=== PATIENT | male | born 1950 | race Caucasian/White ===

== ENCOUNTER 2017-03-02 15:45 | Inpatient (IN) | payer MEDICARE ==
[~2017-03-02] VITALS: Ht 188 cm; Wt 94.8 kg
--- NOTE | 2017-03-02 15:50 | NUR ---
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 PT CAME IN ALOC, EVENTUALLY REGAINED CONSCIOUSNESS. GENERALIZED WEAKNESS NOTED. MD AT BS FOR EVAL. PT ABLE TO RESPOND VERBALLY AND FOLLOW COMMANDS. VSS. DENIES HEAD AND ENCK PAIN/ TRAUMA. SAFETY AND COMFORT MEASURES PROVIDED. WILL MONITOR.
[2017-03-02 16:00] LABS: BASOPHILS # (AUTO) 0.1 /CMM (0.0-0.2); BASOPHILS % (AUTO) 0.6 % (0.0-2.0); EOSINOPHILS # (AUTO) 0.2 /CMM (0.0-0.7); EOSINOPHILS % (AUTO) 2.4 % (0.0-6.0); HEMATOCRIT 48 % (39-51); HEMOGLOBIN 16.6 g/dL (13.5-17.5); LYMPHOCYTES # (AUTO) 2.1 /CMM (0.8-4.8); LYMPHOCYTES % (AUTO) 21.9 % (20.0-44.0); MEAN CORPUSCULAR HEMOGLOBIN 30 PG (26.0-33.0); MEAN CORPUSCULAR HGB CONC 34 g/dl (31.0-36.0); MEAN CORPUSCULAR VOLUME 87 fL (80-96); MONOCYTES # (AUTO) 0.7 /CMM (0.1-1.30); MONOCYTES % (AUTO) 7.5 % (2.0-12.0); NEUTROPHILS # (AUTO) 6.3 /CMM (1.8-8.9); NEUTROPHILS % (AUTO) 67.6 % (43.0-81.0); PLATELET COUNT (AUTO) 227 /CMM (150-450); RDW COEFFICIENT OF VARIATION 12.8 (11.5-15.0); RED BLOOD CELL COUNT(AUTO) 5.57 MIL/uL (4.5-6.0); WHITE BLOOD COUNT (AUTO) 9.4 K/uL (4.3-11.0)
[2017-03-02] MEDS ORDERED: IV NS 0.9% 1,000 ML BAG IV ONE (16:00)
[2017-03-02 16:16] LABS: CALCIUM, SERUM 10.1 mg/dL (8.5-10.1); CARBON DIOXIDE 27 mmol/L (21-32); CHLORIDE 105 mmol/L (98-107); CREATININE 1.2 mg/dL (0.6-1.3); GLUCOSE 102 mg/dL (74-106); POTASSIUM 4.2 mmol/L (3.5-5.1); SODIUM SERUM 140 mmol/L (136-145); UREA NITROGEN, BLOOD 13 mg/dL (7-18)
[2017-03-02 16:19] LABS: INR 0.95 (0.87-1.13); PROTHROMBIN TIME 9.9 SECS (9.5-12.7)
[2017-03-02 16:22] LABS: ALANINE AMINOTRANSFERASE 23 U/L (12-78); ALBUMIN 4.1 g/dL (3.4-5.0); ALKALINE PHOSPHATASE 80 U/L (46-116); ASPARTATE AMINOTRANSFERASE 18 U/L (15-37); BILIRUBIN,DIRECT 0.1 mg/dL (0.0-0.2); BILIRUBIN,TOTAL 0.4 mg/dL (0.2-1.0); TOTAL PROTEIN, SERUM 7.4 g/dL (6.4-8.2)
[2017-03-02 16:24] LABS: TROPONIN I < 0.017 ng/mL (0.00-0.056)
[2017-03-02] MEDS ORDERED: IV 1/2NS 1000 ML 1,000 ML IV PRN ×2 (16:51→17:00)
--- NOTE | 2017-03-02 16:53 | NUR ---
REPORT GIVEN TO TIMO ORTIZ FOR GIULIA
[2017-03-02 17:00] VITALS: BP 148/94
[2017-03-02] MEDS ORDERED: MAGNESIUM HYDROXIDE 30 ML UDC PO PRN ×2 (17:00→17:15)
[2017-03-02] MEDS ORDERED: HYDROCODONE/APAP 5/325MG 1 EACH TABLET PO PRN ×2 (17:00→17:15)
[2017-03-02] MEDS ORDERED: MAG HYDROX/AL HYDROX/SIMETH 30 ML UDC PO PRN ×2 (17:00→17:15)
[2017-03-02] MEDS ORDERED: ACETAMINOPHEN 325 MG TABLET PO PRN ×2 (17:00→17:15)
[2017-03-02] MEDS ORDERED: ONDANSETRON HCL/PF 4 MG/2 ML VIAL IVP PRN ×2 (17:00→17:15)
[2017-03-02] MEDS ORDERED: ZOLPIDEM TARTRATE 5 MG TABLET PO PRN (17:00)
[2017-03-02] MEDS ORDERED: Z GUARD REMEDY 2 OZ OINT TP PRN ×2 (17:00→17:15)
--- NOTE | 2017-03-02 17:04 | NUR ---
PT TRANSFERRED TO TELEMETRY UNIT IN STABLE CONDITION
[2017-03-02] MEDS ORDERED: CITA10TA9 PO (17:34)
[2017-03-02] MEDS ORDERED: LISI-607 PO (17:34)
[2017-03-02] MEDS ORDERED: BUSP5TAB3 PO (17:35)
--- NOTE | 2017-03-02 17:36 | NUR ---
History of taking meds, lisinopril, buspirone, and citalopram. Has not taken any recently. Family history of heart attack. Dad at 72 yeas of age. Mom at 70 years of age of "natural causes, was messed up in the head" per patient. Request something for relaxing and sleep.
[2017-03-02 17:47] VITALS: BP 148/94
--- NOTE | 2017-03-02 19:25 | NUR ---
RN NOTES PT AWAKE, HOB ELEVATED, NO SOB, NOT IN DISTRESS, ON ROOM AIR AND TOLERATED WELL. PT ALERT AND ORIENTED X3, DENIES ANY PAIN AND DISCOMFORT. TELEMONITOR READS SINUS RHYTHM AT 68. IV ACCESS ON LEFT HAND PATENT AND INTACT. PT AMBULATORY WITH STEADY GAIT. KEPT COMFORTABLE AND ATTENDED. WILL CONTINUE TO MONITOR PT.
[2017-03-02 20:00] VITALS: BP_SYST 102; BP_SYST 123; BP_SYST 124; BP_DIAS 67; BP_DIAS 80; BP_DIAS 82; BP_DIAS 83
[2017-03-02] MEDS: ZOLPIDEM TARTRATE 5 MG TABLET PO PRN (21:30)
--- NOTE | 2017-03-02 21:30 | NUR ---
RN NOTES PT VERBALIZING DIFFICULTY IN SLEEPING, AMBIEN 5 MG TAB GIVEN PO. WILL CONTINUE TO MONITOR PT.
[2017-03-02 22:00] VITALS: BP 123/83
[2017-03-03] MEDS ORDERED: IV SET PRIMARY PUMP SET 1 EA INFUS.SET MC ONE ×2 (05:04→08:49)
--- NOTE | 2017-03-03 07:10 | NUR ---
HOSTING ENGINEER NOTES RECEIVED PATIENT IN BED, AWAKE. A/O X4. BREATHING EVEN AND NON LABORED, ON ROOM AIR, TOLERATING WELL, NO SOB. APPEARS ANXIOUS, NO C/O PAIN AT THIS TIME. CALL LIGHT WITHIN REACH. WILL CONT TO MONITOR.
[2017-03-03 07:25] VITALS: BP 140/74
[2017-03-03] MEDS ORDERED: PANTOPRAZOLE 40 MG TABLET.DR PO SCH (07:30)
--- NOTE | 2017-03-03 07:44 | NUR ---
RN NOTES PT AWAKE, NO SOB, NOT IN DISTRESS, ON ROOM AIR AND TOLERATED WELL. VITAL SIGNS STABLE, DENIES ANY PAIN AND DISCOMFORT. NO SIGNIFICANT CHANGE IN CONDITION NOTED. ENDORSED TO MORNING RN FOR CONTINUITY OF CARE.
[2017-03-03] MEDS: PANTOPRAZOLE 40 MG TABLET.DR PO SCH (08:04)
--- NOTE | 2017-03-03 09:30 | NUR ---
PATIENT IN BED, APPEARS ANXIOUS. ON TELEMONITOR SINUS RHYTHM HR 68. NO SOB NOTED. PER PATIENT ATIVAN WOULD HELP HIS ANXIETY. INFORMED DR. ENRIQUETA DRAPER AND MADE AWARE REGARDING HOME MEDICATION FOR RECON.
[2017-03-03 09:46] LABS: CHOLESTEROL 160 mg/dL (<200); HDL CHOLESTEROL 35 mg/dL (40-60); LDL 92 mg/dL (0-99); TRIGLYCERIDES 166 mg/dL (30-150)
[2017-03-03 10:00] VITALS: BP_SYST 106; BP_SYST 145; BP_SYST 153; BP_DIAS 74; BP_DIAS 79; BP_DIAS 87
[2017-03-03] MEDS: VALSARTAN 80 MG TABLET PO SCH (10:51)
[2017-03-03] MEDS: IV NS 0.9% 1,000 ML IV PRN ×2 (10:52→18:41)
--- NOTE | 2017-03-03 12:00 | NUR ---
PATIENT TO BE DISCHARGED HOME ORDERED AFTER IVF AND IF NOT ORTHOSTATIC ANYMORE. F/U WITH DR. JAMES IN 2 WEEK AFTER DC. INFORMED PATIENT, VERBALIZED UNDERSTANDING.
[2017-03-03 12:06] VITALS: BP 140/74
--- NOTE | 2017-03-03 13:48 | NUR ---
REVIEWED VACCINATION STATUS WITH THE PATIENT, REFUSES PNA AND FLU VACCINE. UPDATED VACCINATIONS STATUS.
--- NOTE | 2017-03-03 15:01 | NUR ---
DR. ENRIQUETA DRAPER ORDERED ATIVAN 1MG PO PRN X1 NOTED AND ACKNOWLEDGED.
[2017-03-03] MEDS ORDERED: LORAZEPAM 1 MG TABLET PO ONE (15:30)
[2017-03-03 16:00] VITALS: BP 116/72
--- NOTE | 2017-03-03 19:30 | NUR ---
MS RN CLOSING NOTES PATIENT IN BED, A/O X4. NOT IN DISTRESS. APPEARS CALM AND RELAX, NO ANXIETY, ATIVAN PO PRN EFFECTIVE. 2ND BAG OF IV NS INFUSING AT 250ML/HR. NO C/O PAIN AT THIS TIME. COLLECTED SAMPLE FOR MRSA SURVEILLANCE AND SEND TO LAB. PATIENT TO BE DISCHARGED HOME AFTER IVF AND IF NOT ORTHOSTATIC ORDERED. CALL LIGHT WITHIN REACH. ENDORSED TO CHILDCARE AIDE RN FOR GIULIA.
[2017-03-03 20:00] VITALS: BP_SYST 100; BP_SYST 105; BP_SYST 109; BP_DIAS 62; BP_DIAS 65; BP_DIAS 72
[2017-03-03] MEDS: ZOLPIDEM TARTRATE 5 MG TABLET PO PRN (21:31)
--- NOTE | 2017-03-03 21:31 | NUR ---
RN NOTES PT VERBALIZING DIFFICULTY IN SLEEPING, AMBIEN 5 MG TAB GIVEN PO. WILL CONTINUE TO MONITOR PT.
[2017-03-03 22:00] VITALS: BP 105/72
[2017-03-04] VITALS: BP 125/66
[2017-03-04 00:15] VITALS: BP_SYST 121; BP_SYST 123; BP_SYST 130; BP_DIAS 66; BP_DIAS 74; BP_DIAS 75
--- NOTE | 2017-03-04 00:15 | NUR ---
RN NOTES IVF CONSUMED, ORTHOSTATIC BP CHECKED. SUPINE 123/66, SITTING 130/74, STANDING 121/75. DENIES DIZZINESS. PT VERBALIZED WILL GO HOME TOMORROW AFTER 9AM. CHARGE NURSE MADE AWARE. WILL INFORM THE DOCTOR.
--- NOTE | 2017-03-04 01:30 | NUR ---
RN NOTES SPOKE TO DR DUNNE, MADE HIM AWARE OF THE ORTHOSTATIC BP AND PT WANTS TO GO HOME TOMORROW AFTER 9AM. HOLD DISCHARGE UNTIL THIS MORNING PER DR DUNNE. PT MADE AWARE.
--- NOTE | 2017-03-04 06:50 | NUR ---
RN NOTES PT ASLEEP, BREATHING REGULAR AND UNLABORED, NO SOB, NOT IN DISTRESS, ON ROOM AIR AND TOLERATED WELL. ORTHOSTATIC BP IMPROVED. PT DENIES ANY PAIN AND DIZZINESS. NO EPISODE OF NAUSEA AND VOMITING. FOR DISCHARGE TODAY IF PT IS NOT ORTHOSTATIC ANYMORE AND AMBULATE BEFORE DISCHARGE ORDERED BY DR ROBISON. KEPT PT COMFORTABLE AND ATTENDED. WILL ENDORSE TO MORNING RN FOR CONTINUITY OF CARE.
[2017-03-04 08:00] VITALS: BP_SYST 128; BP_DIAS 74; BP_DIAS 75
--- NOTE | 2017-03-04 08:00 | NUR ---
MS RN Notes Received pt. Pt is Awake, A&O x 3. Pt reports no SOB or pain. No c/o nausea or vomiting. Doctor has ordered ambulation before D/C home today. Bed lowered to lowest position, call light within reach. Will continue to monitor.
[2017-03-04 11:15] VITALS: BP 128/74
[2017-03-04] MEDS: VALSARTAN 80 MG TABLET PO SCH (11:15)
[2017-03-04] MEDS: PANTOPRAZOLE 40 MG TABLET.DR PO SCH (11:15)
--- NOTE | 2017-03-04 15:20 | NUR ---
DISCHARGED PT HOME VIA PRIVATE CAR WITH STABLE V/S.DISCHARGE INSTRUCTIONS,MED RECONCILIATION HANDED TO THE PT AND INSTRUCTED TO F/U WITH DR JAMES IN 2 WEEKS.IV H/ REMOVED IN LT HAND WITH NO SWELLING OR S/S OF INFECTION ON THE IV SITE.
== END 2017-03-04 15:35 | disposition home or self-care (01) | DRG 312 ==
LOC: ER 15:46 → TELE 17:09 → MED 03-03 10:25
DX: I95.1 Orthostatic hypotension (principal); T67.5XXA Heat exhaustion, unspecified, initial encounter; I10 Essential (primary) hypertension; Z85.47 Personal history of malignant neoplasm of testis; F17.200 Nicotine dependence, unspecified, uncomplicated; Z79.899 Other long term (current) drug therapy; Z71.6 Tobacco abuse counseling; Z92.3 Personal history of irradiation; X58.XXXA Exposure to other specified factors, initial encounter; Y93.9 Activity, unspecified; E86.0 Dehydration; Y92.89 Other specified places as the place of occurrence of the external cause
CPT/HCPCS: 36415; 70450-TC; 71010-TC; 80048-TC; 80061-TC; 80076-TC; 84484-TC; 85025-TC; 85730-TC; 87081-TC; 93307-TC; A4606; J3490; J7030; Z7610

== ENCOUNTER 2017-04-09 09:03 | Emergency (ER) | payer MEDICARE ==
[~2017-04-09 09:03] MED LIST: BUSP5TAB3 PO; CITA10TA9 PO
--- NOTE | 2017-04-09 10:00 | NUR ---
SEE PAPER CHARTING
== END 2017-04-09 10:00 | disposition home or self-care (01) ==
LOC: ER 09:03
DX: Z76.0 Encounter for issue of repeat prescription (principal); I10 Essential (primary) hypertension; Z59.0 Homelessness
CPT/HCPCS: 99283; A4606; Z7610